=== PATIENT | female | born 1980 | race Caucasian/White ===

== ENCOUNTER → 2019-07-22 | Outpatient (CLI) | payer OTHER ==
--- NOTE | 2019-07-22 16:25 | KCIC ---
Examination: CT ABDOMEN PELVIS WO CONTRAST History: Left-sided abdominal pain radiating medially Comparison/Correlation: None Findings: Axial images of the abdomen and pelvis were obtained without contrast. Sagittal and coronal reformatted images were provided. Visualized lung bases are clear. Cholecystectomy noted. Unenhanced liver, spleen, pancreas, and adrenal glands are unremarkable. No radiopaque collecting system calculi. No hydronephrosis. Urinary bladder is unremarkable. Moderate quantity of stool in the colon noted. No bowel obstruction or extraluminal gas. No enlarged abdominal or pelvic lymph nodes. No significant diverticulosis. Bony structures are unremarkable. Impression: No radiopaque collecting system calculi. No obstruction or inflammatory process. PQRS Compliance Statement: One or more of the following individualized dose reduction techniques were utilized for this examination: 1. Automated exposure control 2. Adjustment of the mA and/or kV according to patient size 3. Use of iterative reconstruction technique Electronically signed by: Kaleb Velez MD (07/22/2019 4:22 PM) [facility]
== END | disposition home or self-care (01) ==
LOC: KCIC CT 15:18
PROVIDERS: ATTEND Family Medicine
DX: R10.12 Left upper quadrant pain (principal); Z90.49 Acquired absence of other specified parts of digestive tract; Z88.5 Allergy status to narcotic agent
CPT/HCPCS: 74176

== ENCOUNTER → 2020-01-18 | Outpatient (CLI) | payer OTHER ==
--- NOTE | 2020-01-18 15:25 | KCIC ---
LEFT LEG VENOUS DOPPLER STUDY: Clinical indications: Left leg pain and ankle bruising. Findings: Duplex sonography (including blake scale evaluation and color flow and waveform spectral analysis) of the proximal aspect of the greater saphenous vein and the proximal aspect of the profunda femoral vein and the entire length of the common femoral and superficial femoral and popliteal veins and the tibioperoneal trunk and the proximal aspect of the posterior tibial and peroneal veins of the left leg was performed. Normal compressibility, augmentation of color Doppler flow after calf compression, and respiratory variation of Doppler flow is seen. Thus, there are no sonographic findings of deep venous thrombosis within these veins. Impression: There are no sonographic findings of deep venous thrombosis within the veins discussed above of the left lower extremity. Electronically signed by: Warner Renee MD (01/18/2020 3:22 PM) [facility] [place]
== END ==
LOC: KCIC US 14:38
PROVIDERS: ATTEND Family Medicine
DX: M79.605 Pain in left leg (principal)
CPT/HCPCS: 93971

== ENCOUNTER 2021-03-19 10:52 | Emergency (ER) | payer OTHER | END 2021-03-19 11:44 | disposition left against medical advice (07) | LOC: ER 10:52 | DX: M79.606 Pain in leg, unspecified (principal); Z53.21 Procedure and treatment not carried out due to patient leaving prior to being seen by health care provider ==